=== PATIENT | male | born 1960 | race Caucasian/White ===

== ENCOUNTER 2017-02-03 19:57 | Emergency (ER) | payer MEDICAID, OTHER ==
[2017-02-03 20:02] VITALS: BP 109/81
[2017-02-03] MEDS ORDERED: Ondansetron 4 MG Tab.DIS PO ONE (20:40)
[2017-02-03] MEDS ORDERED: Morphine 4 MG/ML Syringe IM ONE (20:40)
--- NOTE | 2017-02-03 20:51 | EDM.PDOC ---
ED HPI ENT - General Chief Complaint: ENT Problem Stated Complaint: jaw pain Time Seen by Provider: 02/03/17 20:25 Source of Information: Reports: Patient History Limitations: Reports: No limitations - History of Present Illness INITIAL COMMENTS - FREE TEXT/NARRATIVE: This patient is a 56 year old male that presents to the ER. Patient reports that for several weeks he has had let jaw pain. Patient reports he had a CT scan done of his jaw in [place] at [facility] 1 week ago yesterday. Patient reports they called him and told him he had a small fracture per patient. The patient reports his sinus doctor called him and told him that the CT showed no cancer and he should make a followup appointment. The patient reports he does not want to drive to [place]. The patient reports that he has had pain and swelling to the left jaw for several months, possibly 3-4 weeks. The patient reports this occurred while eating. He reports he was opening his jaw when he felt the pain. 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 The patient denies tucker, dizziness, n, v, d, f, neck pain, ear pain, sore throat, cp, soa, abd pain, urinary/bowel changes, rashes. Patient has no teeth. No visual abscess. No redenss, heat to the face. Patient able to talk in complete and full sentences without any difficulty. Airway is intact. Pain of the left jaw is easily manipulated with palpation and opening and closing of the jaw. No cardiac presentation. No obvious areas or symptoms of infection. Patient denies trauma other than eating. Timing/Duration: Reports: Week(s): ("Several Weeks ago, maybe 3-4") Severity: mild Quality: Reports: Ache Improves with: Reports: Immobilization Worsens with: Reports: Movement Associated Symptoms: Denies: confusion, headaches, seizure, shortness of breath , syncope, weakness, chest pain, cough, sputum, fever/chills, diaphoresis, malaise, loss of appetite, nausea/vomiting, rash - Related Data Allergies/ADRs: Allergies Allergy/AdvReac Type Severity Reaction Status Date / Time codeine Allergy Cannot Verified 02/03/17 20:02 Remember erythromycin base Allergy Cannot Verified 02/03/17 20:02 Remember Home Meds: Home Meds Ondansetron [Zofran] 4 mg PO DAILY PRN 01/25/16 [History] Chlorhexidine [Chlorhexidine Flavor] 15 ml PO BID 02/14/16 [History] Gabapentin [Neurontin] 300 mg PO TID 02/03/17 [History] Pantoprazole Sodium 40 mg PO DAILY 02/03/17 [History] Varenicline Tartrate [Chantix] 2 cap PO QAM 02/03/17 [History] Past Medical History HEENT History: Reports: Impaired vision Respiratory History: Reports: Other (see below) Other Respiratory History: PULMONARY DAMAGE R/T RADIATION Gastrointestinal History: Reports: GERD Musculoskeletal History: Reports: Back pain, chronic Psychiatric History: Reports: Addiction Endocrine/Metabolic History: Reports: Other (see below) Other Endocrine/Metabolic History: HYPOGLYCEMIA Oncologic (Cancer) History: Reports: Other (see below) Other Oncologic History: mouth - Past Surgical History HEENT Surgical History: Reports: Oral surgery Other HEENT Surgeries/Procedures: HISTORY OF ORAL CA GI Surgical History: Reports: None Social & Family History - Family History Family Medical History: Noncontributory - Tobacco Use Smoking Status *Q: Current Every Day Smoker Years of Tobacco use: 40 Packs/Tins Daily: 0.5 Used Tobacco, but Quit: Yes Month Tobacco Last Used: 01/2016 Second Hand Smoke Exposure: Yes - Caffeine Use Caffeine Use: Reports: Coffee (am) - Recreational Drug Use Recreational Drug Use: No Drug Use in Last 12 Months: No - Living Situation & Occupation Living situation: Reports: with family ED ROS ENT - Review of Systems Review Of Systems: See Below Constitutional: Reports: no symptoms HEENT: Reports: Other (left jaw pain) Respiratory: Reports: No Symptoms Cardiovascular: Reports: No symptoms Endocrine: Reports: no symptoms GI/Abdominal: Reports: No symptoms : Reports: no symptoms Musculoskeletal: Reports: no symptoms Skin: Reports: no symptoms Neurological: Reports: No Symptoms Psychiatric: Reports: No symptoms Hematologic/Lymphatic: Reports: no symptoms Immunologic: Reports: no symptoms ED EXAM, ENT - Physical Exam Exam: See Below Exam Limited By: No limitations General Appearance: alert, WD/WN, no apparent distress Eye Exam: bilateral eye: EOMI, normal inspection, PERRL Ears: normal external exam, normal canal, hearing grossly normal, normal TMs Nose: normal inspection, normal mucousa, no blood Mouth/Throat: Normal lips, Normal oropharynx, Other (Left jaw tenderness. Mild swelling at the left jaw site. ). No: Dental abcess, Gum swelling, Hoarse voice , Lip swelling, Lip ulcers, Muffled voice, Oral ulcers, Perioral cyanosis, Peritonsillar mass, Pharyngeal erythema, Throat pain, Throat swelling, Tongue swelling, Tonsillar erythema, Tonsillar exudates, Tonsillar swelling, Trismus, Uvular deviation, Uvular edema Head: atraumatic, normocephalic Neck: normal inspection, supple, non-tender, full range of motion Respiratory/Chest: no respiratory distress, lungs clear, normal breath sounds, no accessory muscle use Cardiovascular: normal peripheral pulses, regular rate, rhythm, no edema, no gallop, no JVD, no murmur, no rub Back: normal inspection, full range of motion Extremities: normal inspection, normal range of motion, non-tender, no pedal edema, normal capillary refill Neurological: alert, oriented Psychiatric: normal affect, normal mood Skin: Warm, Dry, Intact, Normal color, No rash Lymphatic: no adenopathy Course - Vital Signs Last Recorded V/S: Last Vital Signs Temp 97.3 F 02/03/17 19:57 Pulse 94 02/03/17 19:57 Resp 20 02/03/17 19:57 BP 109/81 02/03/17 19:57 Pulse Ox 99 02/03/17 19:57 - Orders/Labs/Meds Meds: Medications Discontinued Medications Generic Name Dose Route Start Last Admin Trade Name Freq PRN Reason Stop Dose Admin Morphine Sulfate 4 mg 02/03/17 20:40 Morphine IM 02/03/17 20:41 ONETIME ONE Ondansetron HCl 4 mg 02/03/17 20:40 Zofran Odt PO 02/03/17 20:41 ONETIME ONE Departure - Departure Time of Disposition: 20:55 Disposition: Home, Self-Care 01 Condition: good Clinical Impression: Closed jaw fracture Qualifiers: Encounter type: initial encounter Qualified Code(s): S02.609A - Fracture of mandible, unspecified, initial encounter for closed fracture Instructions: Mandibular Fracture, [id number] Referrals: Provider,Unknown [Primary Care Provider] - Forms: ED Department Discharge Additional Instructions: Followup with your primary care provider Return to the ER for worsening of condition or any emergent concerns Followup with your specialist Nocro 5/325mg 1-2 pills every 4-6 hours as needed for pain #12 no refill - Assessment/Plan Plan: PLEASE SEE RN NOTE FOR PFSH.
== END 2017-02-03 21:45 | disposition home or self-care (01) ==
LOC: CC.ED 19:57
DX: S02.609A Fracture of mandible, unspecified, initial encounter for closed fracture (principal); K21.9 Gastro-esophageal reflux disease without esophagitis; F17.210 Nicotine dependence, cigarettes, uncomplicated; Z88.5 Allergy status to narcotic agent; Z88.1 Allergy status to other antibiotic agents; Z79.899 Other long term (current) drug therapy; X58.XXXA Exposure to other specified factors, initial encounter
CPT/HCPCS: 96372; 99283; A9270; J2270

== ENCOUNTER 2017-02-19 10:02 | Emergency (ER) | payer MEDICAID ==
[2017-02-19 10:07] VITALS: BP 142/83
--- NOTE | 2017-02-19 11:51 | EDM.PDOC ---
ED HPI GENERAL MEDICAL PROBLEM - General Chief Complaint: General Stated Complaint: jaw pain Time Seen by Provider: 02/19/17 11:39 Source of Information: Reports: Patient History Limitations: Reports: No Limitations - History of Present Illness INITIAL COMMENTS - FREE TEXT/NARRATIVE: This patient is a 56 year old male that presents to the ER. Patient reports chronic left sided jaw pain for years. Patient reports history of cancer n jaw with flap. Patient reports he was scheduled for surgery this past week, but rescheduled for this week. Patient reports his pain in the left jaw has increased over the past 3 days. He reports he hurts to open, close his jaw. Patient denies tucker, dizziness, n, v, d, f. Patient reports it feels like something is stuck on or under his flap in mouth to left jaw. I do not visualize any FB. Patient alert and oriented and conversing in full and complete sentences. No redness, heat, drainage. Stable. Duration: Day(s): (3), Getting Worse Severity: Mild Worsens with: Reports: Movement Associated Symptoms: Reports: No Other Symptoms. Denies: Confusion, Chest Pain , Cough, cough w sputum, Diaphoresis, Fever/Chills, Headaches, Loss of Appetite , Malaise, Nausea/Vomiting, Rash, Seizure, Shortness of Breath, Syncope, Weakness Left Face Pain Score (Numeric/FACES): 10 - Related Data Allergies Allergy/AdvReac Type Severity Reaction Status Date / Time codeine Allergy Cannot Verified 02/19/17 10:07 Remember erythromycin base Allergy Cannot Verified 02/19/17 10:07 Remember Home Meds: Home Meds Ondansetron [Zofran] 4 mg PO DAILY PRN 01/25/16 [History] Chlorhexidine [Chlorhexidine Flavor] 15 ml PO BID 02/14/16 [History] Varenicline Tartrate [Chantix] 1 cap PO BID 02/03/17 [History] oxyCODONE HCl [Oxycodone HCl] 10 mg PO ASDIRECTED PRN 02/19/17 [History] Past Medical History HEENT History: Reports: Impaired Vision Respiratory History: Reports: Other (See Below) Other Respiratory History: PULMONARY DAMAGE R/T RADIATION Gastrointestinal History: Reports: GERD Musculoskeletal History: Reports: Back Pain, Chronic Psychiatric History: Reports: Addiction Endocrine/Metabolic History: Reports: Other (See Below) Other Endocrine/Metabolic History: HYPOGLYCEMIA Oncologic (Cancer) History: Reports: Other (See Below) Other Oncologic History: mouth - Past Surgical History HEENT Surgical History: Reports: Oral Surgery GI Surgical History: Reports: None Oncologic Surgical History: Reports: Other (See Below) Social & Family History - Family History Family Medical History: Noncontributory - Tobacco Use Smoking Status *Q: Current Every Day Smoker Years of Tobacco use: 43 Packs/Tins Daily: 0.2 Used Tobacco, but Quit: Yes Month Tobacco Last Used: 01/2016 Second Hand Smoke Exposure: Yes - Caffeine Use Caffeine Use: Reports: Coffee (am) - Recreational Drug Use Recreational Drug Use: No Drug Use in Last 12 Months: No - Living Situation & Occupation Living situation: Reports: with Family ED ROS GENERAL - Review of Systems Review Of Systems: See Below Constitutional: Reports: No Symptoms HEENT: Reports: Other (left jaw pain chronic. ) Respiratory: Reports: No Symptoms Cardiovascular: Reports: No Symptoms Endocrine: Reports: No Symptoms GI/Abdominal: Reports: No Symptoms : Reports: No Symptoms Musculoskeletal: Reports: No Symptoms Skin: Reports: No Symptoms Neurological: Reports: No Symptoms Psychiatric: Reports: No Symptoms Hematologic/Lymphatic: Reports: No Symptoms Immunologic: Reports: No Symptoms ED EXAM, GENERAL - Physical Exam Exam: See Below Exam Limited By: No Limitations General Appearance: Alert, WD/WN, No Apparent Distress Eye Exam: Bilateral Eye: Normal Inspection, PERRL Ears: Normal External Exam, Normal Canal, Hearing Grossly Normal, Normal TMs Ear Exam: Bilateral Ear: Auricle Normal, Canal Normal, TM normal Nose: Normal Inspection, Normal Mucosa, No Blood Throat/Mouth: Normal Inspection, Normal Lips, Normal Teeth, Normal Gums, Normal Oropharynx, Normal Voice, No Airway Compromise, Other (left inner jaw flap in place. No redness, heat, drainage, FB seen. Pain made worse with opening and closing the jaw. ) Head: Atraumatic, Normocephalic Neck: Normal Inspection, Supple, Non-Tender, Full Range of Motion Respiratory/Chest: No Respiratory Distress, Lungs Clear, Normal Breath Sounds, No Accessory Muscle Use Cardiovascular: Normal Peripheral Pulses, Regular Rate, Rhythm, No Edema, No Gallop, No JVD, No Murmur, No Rub Peripheral Pulses: 2+: Radial (L), Radial (R), Posterior Tibial (L), Posterior Tibial (R), Dorsalis Pedis (L), Dorsalis Pedis (R) GI/Abdominal: Soft, Non-Tender Back Exam: Normal Inspection, Full Range of Motion. No: CVA Tenderness (L), CVA Tenderness (R) Extremities: Normal Inspection, Normal Range of Motion, Non-Tender, No Pedal Edema, Normal Capillary Refill Neurological: Alert, Oriented Psychiatric: Normal Affect, Normal Mood Skin Exam: Warm, Dry, Intact, Normal Color, No Rash Lymphatic: No Adenopathy Course - Vital Signs Last Recorded V/S: Last Vital Signs Temp 96.7 F 02/19/17 10:03 Pulse 94 02/19/17 10:03 Resp 16 02/19/17 10:03 BP 142/83 H 02/19/17 10:03 Pulse Ox 99 02/19/17 10:03 Departure - Departure Time of Disposition: 11:45 Disposition: Home, Self-Care 01 Condition: good Clinical Impression: Chronic jaw pain - Discharge Information Instructions: Fractured-Jaw Meal Plan Referrals: Provider,Unknown [Primary Care Provider] - Forms: ED Department Discharge Additional Instructions: Followup with surgeon Return to the ER for emergencies Followup with your primary care provider as needed [place] 5/325mg 1-2 pills every 4-6 hours as needed for pain #15 no refill Magic Mouth Wash Lidocaine, Maalox 1:1 Four times a day as needed, as directed # 240 ml. No refill - Assessment/Plan Plan: PLEASE SEE RN NOTE FOR PFSH.
== END 2017-02-19 11:55 | disposition home or self-care (01) ==
LOC: CC.ED 10:02
DX: G89.29 Other chronic pain (principal); R68.84 Jaw pain; K21.9 Gastro-esophageal reflux disease without esophagitis; F17.210 Nicotine dependence, cigarettes, uncomplicated; Z79.899 Other long term (current) drug therapy; Z88.6 Allergy status to analgesic agent; Z88.8 Allergy status to other drugs, medicaments and biological substances
CPT/HCPCS: 99282

== ENCOUNTER 2017-03-14 20:00 | Emergency (ER) | payer MEDICAID ==
[2017-03-14 20:07] VITALS: BP 144/107
--- NOTE | 2017-03-14 20:36 | EDM.PDOC ---
ED HPI GENERAL MEDICAL PROBLEM - General Chief Complaint: General Stated Complaint: "I think my jaw broke again." Time Seen by Provider: 03/14/17 20:25 Source of Information: Reports: Patient History Limitations: Reports: No Limitations - History of Present Illness INITIAL COMMENTS - FREE TEXT/NARRATIVE: This patient is a 57 year old male that presents to the ER. Patient reports that he has left jaw pain. Patient reports that he has history of plate in his left jaw after cancer and several radiation treatments. The patient reports that he was at home tonight eating when he felt a pop sensation in his left jaw. Patient reports he thought he might have broken his left jaw. Patient reports swelling to the left jaw. Patient reports that he called his surgeon who informed him to come to the ER for a ct scan of his left jaw. Patient denies any other injury. Patient denies tucker, dizziness, n, v, d, f, cp, soa. Onset: Today Onset Date: 03/14/17 Duration: Hour(s): (3) Location: Reports: Other (left jaw) Severity: Mild Improves with: Reports: Immobilization Worsens with: Reports: Movement Associated Symptoms: Reports: No Other Symptoms. Denies: Confusion, Chest Pain , Cough, cough w sputum, Diaphoresis, Fever/Chills, Headaches, Loss of Appetite , Malaise, Nausea/Vomiting, Rash, Seizure, Shortness of Breath, Syncope, Weakness - Related Data Allergies Allergy/AdvReac Type Severity Reaction Status Date / Time codeine Allergy Cannot Verified 03/14/17 20:01 Remember erythromycin base Allergy Cannot Verified 03/14/17 20:01 Remember Home Meds: Home Meds Ondansetron [Zofran] 4 mg PO DAILY PRN 01/25/16 [History] Chlorhexidine [Chlorhexidine Flavor] 15 ml PO BID 02/14/16 [History] Varenicline Tartrate [Chantix] 1 cap PO BID 02/03/17 [History] oxyCODONE HCl [Oxycodone HCl] 10 mg PO Q4H PRN 02/19/17 [History] Past Medical History HEENT History: Reports: Impaired Vision Respiratory History: Reports: Other (See Below) Other Respiratory History: PULMONARY DAMAGE R/T RADIATION Gastrointestinal History: Reports: GERD Musculoskeletal History: Reports: Back Pain, Chronic Psychiatric History: Reports: Addiction Endocrine/Metabolic History: Reports: Other (See Below) Other Endocrine/Metabolic History: HYPOGLYCEMIA Oncologic (Cancer) History: Reports: Other (See Below) Other Oncologic History: mouth - Past Surgical History HEENT Surgical History: Reports: Oral Surgery GI Surgical History: Reports: None Oncologic Surgical History: Reports: Other (See Below) Social & Family History - Family History Family Medical History: Noncontributory - Tobacco Use Smoking Status *Q: Current Every Day Smoker Years of Tobacco use: 40 Packs/Tins Daily: 0.2 Used Tobacco, but Quit: Yes Month Tobacco Last Used: 01/2016 Second Hand Smoke Exposure: Yes - Caffeine Use Caffeine Use: Reports: Coffee (am) - Recreational Drug Use Recreational Drug Use: No Drug Use in Last 12 Months: No - Living Situation & Occupation Living situation: Reports: with Family ED ROS GENERAL - Review of Systems Review Of Systems: See Below Constitutional: Reports: No Symptoms HEENT: Reports: Other (left jaw pain) Respiratory: Reports: No Symptoms Cardiovascular: Reports: No Symptoms Endocrine: Reports: No Symptoms GI/Abdominal: Reports: No Symptoms : Reports: No Symptoms Musculoskeletal: Reports: No Symptoms Skin: Reports: No Symptoms Neurological: Reports: No Symptoms Psychiatric: Reports: No Symptoms Hematologic/Lymphatic: Reports: No Symptoms Immunologic: Reports: No Symptoms ED EXAM, GENERAL - Physical Exam Exam: See Below Exam Limited By: No Limitations General Appearance: Alert, WD/WN, No Apparent Distress Eye Exam: Bilateral Eye: Normal Inspection, PERRL Ears: Normal External Exam, Normal Canal, Hearing Grossly Normal, Normal TMs Ear Exam: Bilateral Ear: Auricle Normal, Canal Normal, TM normal Nose: Normal Inspection, Normal Mucosa, No Blood Throat/Mouth: Normal Lips, Normal Oropharynx, Normal Voice, No Airway Compromise , Other (no teeth. Patient has inner left mouth graft flap appears. Patient has pain, tenderness to left mandible at the joint with opening and closing of mouth with mild trismus. No redness, no heat. Same swelling as previous ER visits I have seen him, no changes. ) Head: Atraumatic, Normocephalic Neck: Normal Inspection, Supple, Non-Tender, Full Range of Motion Respiratory/Chest: No Respiratory Distress, Lungs Clear, Normal Breath Sounds, No Accessory Muscle Use Cardiovascular: Normal Peripheral Pulses, Regular Rate, Rhythm, No Edema, No Gallop, No JVD, No Murmur, No Rub Peripheral Pulses: 2+: Radial (L), Radial (R) Back Exam: Normal Inspection, Full Range of Motion Extremities: Normal Inspection, Normal Range of Motion, Non-Tender, No Pedal Edema, Normal Capillary Refill Neurological: Alert, Oriented Psychiatric: Normal Affect, Normal Mood Skin Exam: Warm, Dry, Intact, Normal Color, No Rash Lymphatic: No Adenopathy Course - Vital Signs Last Recorded V/S: Last Vital Signs Temp 98.9 F 03/14/17 20:03 Pulse 90 03/14/17 20:03 Resp 20 03/14/17 20:03 BP 144/107 H 03/14/17 20:03 Pulse Ox 98 03/14/17 20:03 - Orders/Labs/Meds Orders: Active Orders 24 hr Category Date Time Status Max Facial Sinus wo Cont [CT] Stat Exams 03/14/17 20:29 Taken Meds: Medications Discontinued Medications Generic Name Dose Route Start Last Admin Trade Name Freq PRN Reason Stop Dose Admin Ondansetron HCl Confirm 03/14/17 21:03 03/14/17 22:01 Zofran Odt Administered 03/14/17 21:04 Not Given Dose 4 mg .ROUTE .STK-MED ONE Ondansetron HCl 4 mg 03/14/17 22:00 03/14/17 21:10 Zofran Odt PO 03/14/17 22:01 4 mg ONETIME ONE Administration Oxycodone/Acetaminophen 2 tab 03/14/17 22:37 03/14/17 22:42 Percocet 325-5 Mg PO 03/14/17 22:38 2 tab ONETIME ONE Administration - Radiology Interpretation Free Text/Narrative:: Facial Ct without contrast: No fx. no acute changes. plate in place. No fluid. Departure - Departure Time of Disposition: 22:44 Disposition: Home, Self-Care 01 Condition: good Clinical Impression: Chronic jaw pain - Discharge Information Instructions: Fractured-Jaw Meal Plan, Jaw Range of Motion Exercises Referrals: PCP,None [Primary Care Provider] - Forms: ED Department Discharge Additional Instructions: Followup with your primary care provider Followup with your specialist Return to the ER for worsening of condition or any emergent concerns Ice to the area - My Orders Last 24 Hours: My Active Orders 03/14/17 20:29 Max Facial Sinus wo Cont [CT] Stat - Assessment/Plan Last 24 Hours: My Active Orders 03/14/17 20:29 Max Facial Sinus wo Cont [CT] Stat Plan: PLEASE SEE RN NOTE FOR PFSH.
[2017-03-14] MEDS ORDERED: Ondansetron 4 MG Tab.DIS ONE (21:03)
[2017-03-14] MEDS ORDERED: Ondansetron 4 MG Tab.DIS PO ONE (22:00)
[2017-03-14] MEDS ORDERED: Acetaminophen/oxyCODONE 325-5 MG Tab PO ONE (22:37)
== END 2017-03-14 22:46 | disposition home or self-care (01) ==
LOC: CC.ED 20:00
DX: R68.84 Jaw pain (principal); G89.29 Other chronic pain; H54.7 Unspecified visual loss; K21.9 Gastro-esophageal reflux disease without esophagitis; F17.210 Nicotine dependence, cigarettes, uncomplicated; Z88.5 Allergy status to narcotic agent; Z79.899 Other long term (current) drug therapy; Z88.1 Allergy status to other antibiotic agents
CPT/HCPCS: 70486; 99283; A9270

== ENCOUNTER 2017-04-25 23:47 | Emergency (ER) | payer MEDICAID, OTHER ==
[~2017-04-25 23:47] MED LIST: Acetaminophen/oxyCODONE 325-5 MG Tab PO ONE; Clindamycin HCl 150 MG Cap PO ONE
[2017-04-25] MEDS ORDERED: Take Home: Clindamycin HCl 150 MG Cap, 6 Cap Pack PO ONE (23:54)
[2017-04-26] MEDS ORDERED: HYDROmorphone 1 MG/ML Syringe ONE (00:01)
[2017-04-26] MEDS ORDERED: Ondansetron 4 MG Tab.DIS ONE (00:01)
--- NOTE | 2017-04-26 00:03 | EDM.PDOC ---
ED HPI GENERAL MEDICAL PROBLEM - General Chief Complaint: General Stated Complaint: jaw pain/swelling Time Seen by Provider: 04/25/17 23:58 Source of Information: Reports: Patient - History of Present Illness INITIAL COMMENTS - FREE TEXT/NARRATIVE: has facial swelling and redness from infection post surgery for sinus cancer. Onset: Gradual Duration: Day(s): Location: Reports: Face Front/Back Body Image: 1 - facial swelling and redness Severity: Moderate - Related Data Allergies Allergy/AdvReac Type Severity Reaction Status Date / Time codeine Allergy Cannot Verified 03/14/17 20:01 Remember erythromycin base Allergy Cannot Verified 03/14/17 20:01 Remember Home Meds: Home Meds Ondansetron [Zofran] 4 mg PO DAILY PRN 01/25/16 [History] Chlorhexidine [Chlorhexidine Flavor] 15 ml PO BID 02/14/16 [History] Varenicline Tartrate [Chantix] 1 cap PO BID 02/03/17 [History] oxyCODONE HCl [Oxycodone HCl] 10 mg PO Q4H PRN 02/19/17 [History] Past Medical History HEENT History: Reports: Impaired Vision Respiratory History: Reports: Other (See Below) Other Respiratory History: PULMONARY DAMAGE R/T RADIATION Gastrointestinal History: Reports: GERD Musculoskeletal History: Reports: Back Pain, Chronic Psychiatric History: Reports: Addiction Endocrine/Metabolic History: Reports: Other (See Below) Other Endocrine/Metabolic History: HYPOGLYCEMIA Oncologic (Cancer) History: Reports: Other (See Below) Other Oncologic History: mouth - Past Surgical History HEENT Surgical History: Reports: Oral Surgery GI Surgical History: Reports: None Oncologic Surgical History: Reports: Other (See Below) Social & Family History - Family History Family Medical History: Noncontributory - Tobacco Use Smoking Status *Q: Current Every Day Smoker Years of Tobacco use: 40 Packs/Tins Daily: 0.2 Used Tobacco, but Quit: Yes Month Tobacco Last Used: 01/2016 Second Hand Smoke Exposure: Yes - Caffeine Use Caffeine Use: Reports: Coffee (am) - Recreational Drug Use Recreational Drug Use: No Drug Use in Last 12 Months: No - Living Situation & Occupation Living situation: Reports: with Family ED ROS GENERAL - Review of Systems Review Of Systems: ROS reveals no pertinent complaints other than HPI. ED EXAM, GENERAL - Physical Exam Exam: See Below Free Text/Narrative:: significantly swollen left cheek General Appearance: Alert Nose: Normal Inspection Head: Atraumatic Respiratory/Chest: No Respiratory Distress Cardiovascular: Normal Peripheral Pulses Course - Orders/Labs/Meds Meds: Medications Discontinued Medications Generic Name Dose Route Start Last Admin Trade Name Freq PRN Reason Stop Dose Admin Clindamycin HCl 1 packet 04/25/17 23:54 Take Home: Clindamycin Hcl 150 Mg, 6 Cap Pack PO 04/25/17 23:55 ONETIME ONE Departure - Departure Time of Disposition: 00:02 Disposition: Home, Self-Care 01 Condition: Fair Clinical Impression: Sinus, maxillary, cancer, carcinoma - Discharge Information Forms: ED Department Discharge Additional Instructions: Call your surgeon in the morning to schedule an earlier appointment. Take your antibiotics and pain medicine as prescribed.
[2017-04-26] MEDS ORDERED: Take Home: Acetaminophen/oxyCODONE 325-5 MG, 2 Tab Pack PO ONE (00:07)
[2017-04-26] MEDS ORDERED: HYDROmorphone 1 MG/ML Syringe IM ONE (00:09)
[2017-04-26] MEDS ORDERED: Ondansetron 4 MG Tab.DIS PO ONE (00:24)
[2017-04-26 04:42] VITALS: BP 154/87
== END 2017-04-26 00:35 | disposition home or self-care (01) ==
LOC: CC.ED 23:47
DX: C31.0 Malignant neoplasm of maxillary sinus (principal); K21.9 Gastro-esophageal reflux disease without esophagitis; G89.29 Other chronic pain; M54.9 Dorsalgia, unspecified; E16.2 Hypoglycemia, unspecified; Z87.891 Personal history of nicotine dependence; Z88.5 Allergy status to narcotic agent; Z88.1 Allergy status to other antibiotic agents; Z79.899 Other long term (current) drug therapy
CPT/HCPCS: 96372; 99282; A9270; J1170

== ENCOUNTER 2017-05-15 19:05 | Emergency (ER) | payer MEDICAID ==
[~2017-05-15 19:05] MED LIST changes: +Acetaminophen/HYDROcodone 325-5 MG Tab PO ONE; -Acetaminophen/oxyCODONE 325-5 MG Tab PO ONE; -Clindamycin HCl 150 MG Cap PO ONE
[2017-05-15 19:11] VITALS: BP 152/97
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
[2017-05-15] MEDS ORDERED: Ketorolac 60 MG/2 ML SDV IM ONE (21:30)
[2017-05-15] MEDS ORDERED: Take Home: Acetaminophen/HYDROcodone 325-5 MG, 2 Tab Pack PO ONE (22:39)
== END 2017-05-15 22:51 | disposition home or self-care (01) ==
LOC: CC.ED 19:05
DX: S00.83XA Contusion of other part of head, initial encounter (principal); F17.210 Nicotine dependence, cigarettes, uncomplicated; K21.9 Gastro-esophageal reflux disease without esophagitis; Z85.828 Personal history of other malignant neoplasm of skin; Z98.890 Other specified postprocedural states; Z88.1 Allergy status to other antibiotic agents; Z88.5 Allergy status to narcotic agent; W18.09XA Striking against other object with subsequent fall, initial encounter
CPT/HCPCS: 70486; 96372; 99283; A9270; J1885

== ENCOUNTER 2017-06-18 15:32 | Emergency (ER) | payer MEDICAID ==
[2017-06-18] MEDS ORDERED: Ondansetron 4 MG Tab.DIS PO ONE (15:33)
[2017-06-18] MEDS ORDERED: Acetaminophen/oxyCODONE 325-5 MG Tab PO ONE (15:33)
[2017-06-18 15:41] VITALS: BP 134/86
[2017-06-18] MEDS ORDERED: Take Home: Acetaminophen/oxyCODONE 325-5 MG, 2 Tab Pack PO ONE (16:15)
[2017-06-18] MEDS ORDERED: Take Home: Ondansetron 4 MG Tab.DIS, 2 Tab Pack PO ONE (16:19)
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
== END 2017-06-18 16:25 | disposition home or self-care (01) ==
LOC: CC.ED 15:32
DX: R68.84 Jaw pain (principal); F17.210 Nicotine dependence, cigarettes, uncomplicated; K21.9 Gastro-esophageal reflux disease without esophagitis; Z88.5 Allergy status to narcotic agent; Z88.1 Allergy status to other antibiotic agents
CPT/HCPCS: 99282; A9270

== ENCOUNTER 2018-12-16 21:34 | Emergency (ER) | payer MEDICAID ==
[2018-12-16] MEDS ORDERED: hydrOXYzine HCl 25 MG Tab PO ONE (21:35)
[2018-12-16 21:42] VITALS: BP 143/89
[2018-12-16] MEDS ORDERED: Meclizine 12.5 MG Tab PO ONE (21:52)
[2018-12-16] MEDS ORDERED: Sodium Chloride 0.9% 1,000 ML IV ONE (21:52)
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
[2018-12-16 22:03] LABS: CHLORIDE,CL 105 mEq/L (98-106); SODIUM,NA 141 mEq/L (136-145)
[2018-12-16] MEDS ORDERED: Ondansetron 4 MG Tab.DIS PO ONE (22:48)
[2018-12-16] MEDS ORDERED: Take Home: hydrOXYzine HCl 25 MG Tab, 4 Tab Pack PO ONE (22:56)
== END 2018-12-16 23:09 | disposition home or self-care (01) ==
LOC: CC.ED 21:34
DX: R42 Dizziness and giddiness (principal); R51 Headache; G89.29 Other chronic pain; Z85.828 Personal history of other malignant neoplasm of skin; Z88.5 Allergy status to narcotic agent; Z88.1 Allergy status to other antibiotic agents; Z85.818 Personal history of malignant neoplasm of other sites of lip, oral cavity, and pharynx
CPT/HCPCS: 36415; 70450; 80048; 85025; 93005; 96360; 99284; A9270; J7030